=== PATIENT | female | born 1950 | race Asian ===

== ENCOUNTER 2025-03-12 08:00 | Outpatient (RCR) | payer MEDICARE, MEDICAID, SELFPAY ==
--- NOTE | 2025-03-04 12:01 | PTNOTE_ITS ---
PT OP Initial Eval Patient Information Outpatient Physical Therapy Treatment Date: 03/04/25 Visit Reasons: Bilateral knee pain Medical Diagnosis: Bilateral Knee Pain Treatment Dx #1: Bilateral Knee Pain Start of Care: 03/04/25 Date of Onset: 6 months ago Smoking Status Smoking Status: Never smoker Initial Assessment Subjective: Pt is a 74 y/o female reports of chronic bilateral knee pain (6/10) worsening in the past 6 months. 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 Pt has limitation with walking, standing, stairs, balance, and recreational activities. Due to knee pain Pt has been using walker for ~ 1 year. Objective: Left Knee AROM: 0 deg to 120 deg with pain Right Knee AROM: 0 deg to 125 deg with pain Knee MMTs: grossly 4-/5 Hip MMTs: grossly 3+/5 Assessment: Pt demonstrate bilateral knee pain with mobility deficits leading to difficulty with ADLs. Pt will attempt physical therapy if pain persist Pt will be refer back to provider for further consultation. Short Term and Senior Care Goals 1) Increase bilateral knee AROM WFL in 6 wks to be able to perform chores 2) Decrease knee pain to 2/10 in 6 wks to be able to stand more than 30 mins 3) Increase bilateral knee MMTs grossly to 4/5 in 6 wks to be able to perform stairs and steps 4) Increase hip MMTs grossly to 4-/5 in 6 wks to be able to walk more than 30 mins 5) Indep with HEP Treatment Plan 1) Manual Therapy 2) Therapeutic Activities 3) Therapeutic Exercises 4) Modalities (ice, heat) 5) Balance Training 6) Gait Training Frequency and Duration: 2 x wk for 6 wks Certification Dates: 03/04/25 to 06/04/25 Procedure Charges OP PT Eval Mod Complex 30 minutes: Yes
--- NOTE | 2025-03-10 11:19 | PT.ODAYNRPT ---
PT Outpatient Daily Note OP Daily Note Outpatient Physical Therapy Treatment Date: 03/10/25 Visit Reasons: Bilateral knee pain Subjective: Pt's knee still stiff and painful. No other concerns reported Objective: Please see flow chart for list of ther ex performed Assessment: tolerate exercises performed; frequent cues to keep track of reps to prevent LE fatigue. Plan: Continue with PT Length of Time (minutes) of Treatment: 30 Minutes Procedure Charges Therapeutic Exercise 30 minutes: Yes
--- NOTE | 2025-03-12 08:39 | PT.ODAYNRPT ---
PT Outpatient Daily Note OP Daily Note Outpatient Physical Therapy Treatment Date: 03/12/25 Visit Reasons: Bilateral knee pain Subjective: Pt's knees continues to hurt with prolonged standing or when she stands on one leg with self care or dressing activities. Objective: Please see flow chart for list of ther ex performed Assessment: patient educated why she has more pain in standing which relates to found OA in the knees. Pt gave verbal understanding. Slight increase in knee pain after side step exercise Plan: Continue with PT Length of Time (minutes) of Treatment: 30 Minutes Procedure Charges Therapeutic Exercise 30 minutes: Yes
== END 2025-03-13 23:59 | disposition home or self-care (01) ==
LOC: CPTX 08:00
PROVIDERS: PCP Physician Assistant; Referring Provider Physician Assistant; Visit Provider Physician Assistant
DX: M25.562 Pain in left knee (principal); M25.561 Pain in right knee; G89.29 Other chronic pain; R26.2 Difficulty in walking, not elsewhere classified; R26.89 Other abnormalities of gait and mobility; M17.0 Bilateral primary osteoarthritis of knee
CPT/HCPCS: 97110; 97162

== ENCOUNTER 2025-03-28 08:30 | Outpatient (RCR) | payer MEDICARE, MEDICAID, SELFPAY ==
--- NOTE | 2025-03-18 13:16 | PTNOTE_ITS ---
PT Outpatient Daily Note OP Daily Note Outpatient Physical Therapy Treatment Date: 03/18/25 Visit Reasons: Bilateral knee pain Subjective: Pt's knee is about the same. Pt continues to have pain around the knees. Objective: Please see flow chart for list of ther ex performed Assessment: added more closed chain exercises to day with good tolerance. Pt reports of diz ziness from supine to sit and require to sit at the EOB prior to ambulating to parallel bar to perform standing exercises Plan: Continue with PT Length of Time (minutes) of Treatment: 30 Minutes Procedure Charges Therapeutic Exercise 30 minutes: Yes
--- NOTE | 2025-03-26 09:34 | PT.ODAYNRPT ---
PT Outpatient Daily Note OP Daily Note Outpatient Physical Therapy Treatment Date: 03/26/25 Visit Reasons: Bilateral knee pain Subjective: Pt notice some crunchy in her knees when she bends it. Overall her knee is doing okay no new concerns. Objective: Please see flow chart for list of ther ex performed Assessment: added more closed chain exercises today with good tolerance. Frequent cues to correct form with fwd lunge exercises Plan: Continue with PT Length of Time (minutes) of Treatment: 30 Minutes Procedure Charges Therapeutic Exercise 30 minutes: Yes
--- NOTE | 2025-03-28 12:30 | PT.ODS1RPT ---
PT OP Progress/Discharge Note Date of Service: 03/28/25 Progress Note/DC Note Progress Note/Discharge Note: DC Note Patient Information Visit Reasons: Bilateral knee pain Medical Diagnosis: Bilateral Knee Pain Treatment Dx #1: Bilateral Knee Pain Service Discharge Date: 03/28/25 Status Subjective: Pt's knee pain is about the same since starting physical therapy. Pt continues to have the same pain (6/10) around the knee. Pt has limitation with walking, standing, chores, balance, self care, and performing recreational activities. Objective: Bilateral Knee AROM: 0 deg to 125 deg with pain Bilateral Knee MMTs: grossly 4/5 Hip MMTs: grossly 3+/5 Assessment: Pt demonstrate functional knee mobility and strength, however, no change in pain leading to limitation with ADLs. Pt will no longer benefit from physical therapy due to minimal progress towards goals. Pt was instructed on HEP last session and educated to continue exercises to maintain overall mobility. Pt performed all exercises safely; thank you for your referrals. Plan: D/C home with HEP and follow with MD Procedure Charges Therapeutic Exercise 30 minutes: Yes
== END 2025-04-13 23:59 | disposition home or self-care (01) ==
LOC: CPTX 08:30
PROVIDERS: PCP Physician Assistant; Referring Provider Physician Assistant; Visit Provider Physician Assistant
DX: M25.562 Pain in left knee (principal); M25.561 Pain in right knee; G89.29 Other chronic pain; R26.2 Difficulty in walking, not elsewhere classified; R26.89 Other abnormalities of gait and mobility; M17.0 Bilateral primary osteoarthritis of knee
CPT/HCPCS: 97110

== ENCOUNTER 2025-03-31 09:49 | Emergency (ER) | payer MEDICARE, MEDICAID, SELFPAY ==
[2025-03-31 10:08] VITALS: BP 157/88; PULSE 64; RESP 18; TEMP 36.7; O2SAT 96
--- NOTE | 2025-03-31 10:14 | XR_ITS ---
Examination: PA chest single view TECHNIQUE: Upright PA chest single view Date and time: March 31, 2025 1034 hours INDICATIONS: Patient fell today with injury to the chest, chest pain FINDINGS: Normal heart size. No pneumothorax. Prominent osteopenia IMPRESSION: No pneumothorax pulmonary contusion or hemothorax
--- NOTE | 2025-03-31 10:14 | XR_ITS ---
Examination: Right elbow 3 views Technique: Elbow AP, oblique, lateral 3 views Exam date and time: March 31, 2025 1014 hours INDICATIONS: Patient fell today with injury to the elbow, elbow pain. FINDINGS: Advanced elbow osteoarthritis No fracture or dislocation The lateral is not a true lateral IMPRESSION: Limited study No acute fracture.
--- NOTE | 2025-03-31 10:32 | EDNOTE_ITS ---
<Statement entered by Hina Benz MD - 03/31/25 15:49> As co-signing physician, I was present and available for consult prn. I concur with the plan and care as documented by the midlevel provider. ED Fall Injury RME/HPI General Chief Complaint: Fall Stated Complaint: FELL, HIT CHEST/L) ELBOW Time Seen by Provider: 03/31/25 10:09 Source: patient Arrival date/time: 03/31/25 09:49 74-year-old female with a history of hypertension presents to the emergency room with a chief complaint of left elbow pain and chest pain after a ground-level fall. Patient denies any head injury Mode of arrival: ambulatory Limitations: no limitations Related Data Home Medications ?Medication ?Instructions ?Recorded ?Confirmed benazepril 40 mg tablet (Lotensin) 40 mg PO QDAY #0 ta bs 07/25/17 12/12/22 metoprolol tartrate 50 mg tablet 50 mg PO BID #0 tabs 07/25/17 12/12/22 amlodipine 2.5 mg tablet (Norvasc) 2.5 mg PO DAILY 11/2912/12/22 lorazepam 1 mg tablet 1 mg PO Q4H PRN Anxiety 11/2912/12/22 calcium carbonate (Calcium 600) 600 mg PO QDAY 3 12/12/22 metformin 500 mg tablet 500 mg PO QDAY 12/12/2209/05 vitamin B complex-vitamin C-folic 1 tab PO QDAY 12/12/22 acid 0.8 mg tablet (Renal-Raven) Allergies Allergy/AdvReac Type Severity Reaction Status Date / Time No Known Allergies Allergy Verified 03/31/25 09:54 Review of Systems Review of Systems Systems Reviewed: All systems reviewed, normal except as documented Constitutional Constitutional: Reports system reviewed and no additional complaints, except as documented, Denies fatigue, Denies fever(s), Denies headache(s) and Denies weakness Eyes Eyes: Reports system reviewed and no additional complaints, except as documented , Denies blurry vision and Denies change in vision ENT Ears, Nose, Mouth, and Throat: Reports system reviewed and no additional complaints, except as documented, Denies otalgia, Denies headache(s), Denies nasal congestion, Denies throat swelling and Denies vertigo Cardiovascular Cardiovascular: Reports system reviewed and no additional complaints, except as documented, Denies chest pain, Denies dyspnea and Denies dyspnea on exertion Respiratory Respiratory: Reports system reviewed and no additional complaints, except as documented, Denies chest congestion, Denies cough, Denies dyspnea, Denies dyspnea on exertion and Denies wheezing Gastrointestinal Gastrointestinal: Reports system reviewed and no additional complaints, except as documented, Denies abdominal pain, Denies cramping, Denies nausea and Denies vomiting Genitourinary Genitourinary: Reports system reviewed and no additional complaints, except as documented Musculoskeletal Musculoskeletal: Reports system reviewed and no additional complaints, except as documented, Reports arthralgias and Denies back pain Integumentary/Breasts Skin/Breast: Reports system reviewed and no additional complaints, except as documented and Denies wounds Neurologic Neurologic: Reports system reviewed and no additional complaints, except as documented, Denies confusion, Denies headache(s), Denies lack of coordination, Denies vertigo and Denies weakness Psychiatric Psychiatric: Reports system reviewed and no additional complaints, except as documented, Denies anxiety, Denies confusion, Denies depression, Denies paranoia, Denies suicidal ideation and Denies tactile hallucinations Endocrine Endocrine: Reports system reviewed and no additional complaints, except as documented and Denies fatigue Hematologic/Lymphatic Hematologic/Lymphatic: Reports system reviewed and no additional complaints, except as documented and Denies lymphadenopathy Allergic/Immunologic Allergic/Immunologic: Reports system reviewed and no additional complaints, except as documented, Denies throat swelling, Denies urticaria and Denies wheezing Past Medical History Social History SMOKING STATUS: Never smoker SECOND HAND EXPOSURE: No SUBSTANCE USE: does not use ED Exam General Limitations: Present no limitations General appearance: Present alert and in no apparent distress Head Head exam: Present atraumatic Eye Eye exam: Present normal appearance, PERRL and EOMI ENT ENT exam: Present normal exam, normal oropharynx and mucous membranes moist Neck Neck exam: Present normal inspection, full ROM and trachea midline Chest Chest inspection: Present normal inspection and symmetric chest wall rise Respiratory Respiratory exam: Present normal lung sounds bilaterally; Absent respiratory distress, wheezes, stridor, accessory muscle use or prolonged expiratory phase Cardiovascular Cardiovascular exam: Present regular rate, normal rhythm and normal heart sounds; Absent bradycardia, tachycardia or irregular rhythm Abdominal Exam Abdominal exam: Present soft and normal bowel sounds Extremities Exam Extremities exam: Present normal inspection and full ROM Expanded Upper Extremity Exam Shoulder exam: Present normal inspection Arm exam: Present normal inspection Elbow exam: Present tenderness and swelling; Absent full ROM Forearm/Wrist exam: Present normal inspection Hand exam: Present normal inspection Back Exam Back exam: Present normal inspection and full ROM Neurological Exam Neurological exam: Present alert, oriented X3 and CN II-XII intact Psychiatric Psychiatric exam: Present normal affect and normal mood Skin Skin exam: Present warm, dry, intact and normal color Course Quality Measures none Orders Category Date Time Status XR chest 2V Stat Exams 03/31/25 10:14 Completed XR elbow comp LT min 3V Stat Exams 03/31/25 10:14 Completed Vital Signs Vital signs: Vital Signs Temperature 98.1 F 03/31/25 10:08 Pulse Rate 64 03/31/25 10:08 Respiratory Rate 18 03/31/25 10:08 Blood Pressure 157/88 H 03/31/25 10:08 Pulse Oximetry (%) 96 03/31/25 10:08 Oxygen Delivery Method Room Air 03/31/25 10:08 O2 saturation 96% within normal limits without Fall MDM Narrative MDM Narrative:: 74-year-old female with a history of hypertension presents to the emergency room with a chief complaint of left elbow pain and chest pain after a ground-level fall. Patient denies any head injury Patient is hemodynamically stable and in no apparent distress Physical examination shows tenderness and pain to the patient's left elbow as well as chest pain. Patient denies hitting her head and denies any neck pain headaches confusion or any other symptoms X-ray of the left elbow was completed and was negative for any acute findings. Chest x-ray was negative for any acute findings. Patient was discharged and educated to follow-up with primary care provider in the next 24 to 48 hours and return to the emergency room for any evidence of worsening signs or symptoms Patient data External records reviewed:: [facility] previous records Clinical information provided by:: patient Social determinants that could affect healthcare access:: none Patient has the following chronic illnesses:: No chronic illness How is presenting disease/condition affected by chronic disease/condition?: no chronic disease Evaluation data The following diagnostics were reviewed and interpreted by me:: lab results and radiology exam(s) Lab and/or radiology exams considered but not ordered:: Labs and radiology exams considered and ordered Interpretation Summary: Chest [id number]: Normal heart size. No pneumothorax. Prominent osteopenia IMPRESSION: No pneumothorax pulmonary contusion or hemothorax Medications / Prescriptions Medications or Prescriptions considered but not ordered:: Medication not given Medication administrations:: Medication not given Consultations Consultation(s) initiated? (list below): No Diagnosis Fall Differential Diagnosis: dislocation of shoulder region and other (Left elbow sprain) Most likely diagnosis given after review of the tests above:: Left elbow sprain Admission Indicated Admission indicated?: not indicated Admission Request Was there a request for admission?: No Disposition Plan Disposition Plan: Discharge Discharge Attestation Discharge Attestation: The patient and all family members were given an opportunity to ask questions and understood the discharge instructions. Discharge instructions specifically effects, indications for sooner follow up or return to the emergency department, and the expected course of current diagnosis. Patient condition: Stable Discharge Plan Plan Patient Disposition: HOME (Self Care) Discharge Disposition comment: Stable Prescriptions/Referrals Prescriptions/Med Rec: No Action calcium carbonate [Calcium 600] 600 mg calcium (1,500 mg) tablet 600 mg PO QDAY Renal-Raven 0.8 mg tablet 1 tab PO QDAY metformin 500 mg tablet 500 mg PO QDAY metoprolol tartrate 50 MG tablet 50 mg PO BID Qty: 0 benazepril [Lotensin] 40 MG tablet 40 mg PO QDAY Qty: 0 amlodipine [Norvasc] 2.5 mg Tablet 2.5 mg PO DAILY lorazepam 1 mg Tablet 1 mg PO Q4H PRN (Reason: Anxiety) Referrals: Teresa Saldana PA-C [Primary Care Provider] - In 1 week Problem List Clinical Impression: Sprain of elbow, left Patient/Caregiver Discharge Instructions Education Materials: ED Sprain, Elbow Additional Instructions: Please follow-up with your primary care provider in the next 24 to 48 hours Your chest x-ray and x-ray of your elbow were negative for any acute findings. For any evidence of worsening signs or symptoms return to the emergency room immediately Print Language: Stateless Stand Alone Forms: Anabella Award Info., Patient Portal Info Letter PA/RAHEL Supervising Physician CHRYSTAL/RAHEL Supervising Physician: Dr. BENZ
== END 2025-03-31 11:53 | disposition home or self-care (01) ==
PROVIDERS: Emergency Provider Emergency Medicine; PCP Physician Assistant
DX: S53.402A Unspecified sprain of left elbow, initial encounter (principal); W18.30XA Fall on same level, unspecified, initial encounter
CPT/HCPCS: 71046; 73080; 99283

== ENCOUNTER → 2025-05-07 | Outpatient (CLI) | payer MEDICARE, MEDICAID, SELFPAY ==
--- NOTE | 2025-05-07 09:33 | XR_ITS ---
Examination: PA lateral chest 2 views TECHNIQUE: Upright PA lateral chest 2 views Date and time: May 07, 2025 0944 hours, comparison March 31, 2025 INDICATIONS: Coughing beginning one week ago. FINDINGS: Normal heart size Lungs are clear. Prominent osteopenia IMPRESSION: No active disease.
== END | disposition home or self-care (01) ==
LOC: CDIM 09:03
PROVIDERS: PCP Physician Assistant; Referring Provider Physician Assistant; Visit Provider Physician Assistant
DX: R05.9 Cough, unspecified (principal)
CPT/HCPCS: 71046

== ENCOUNTER → 2025-05-15 | Outpatient (CLI) | payer MEDICARE, MEDICAID, SELFPAY ==
--- NOTE | 2025-05-15 09:45 | XR_ITS ---
Examination: Esophagram standard 27 spot fluoroscopic films of the esophagus Upright PA chest single view Upright soft tissue lateral neck single view Fluoroscopy Date and time: May 15, 2025 0957 hours INDICATIONS: Dysphonia, dysphagia months FINDINGS: Upright PA chest normal heart size, lungs are clear Soft tissue lateral neck normal epiglottis no prevertebral soft tissue prominence Patient swallowed thin barium with 27 spot fluoroscopic films of the esophagus Primary peristaltic esophageal waves Scattered secondary and tertiary esophageal contractions Moderate intermittent gastroesophageal reflux Mild edema at the gastroesophageal junction with 20% narrowing Fluoroscopy 30 seconds IMPRESSION: Esophageal dysmotility Moderate intermittent gastroesophageal reflux Edema at the gastroesophageal junction 20% narrowing, likely related to reflux esophagitis, clinical correlation advised
== END | disposition home or self-care (01) ==
PROVIDERS: PCP Physician Assistant; Referring Provider Physician Assistant; Visit Provider Physician Assistant
DX: K21.9 Gastro-esophageal reflux disease without esophagitis (principal); R60.0 Localized edema
CPT/HCPCS: 74220; A4649

== ENCOUNTER 2025-08-02 11:22 | Emergency (ER) | payer MEDICARE, MEDICAID, SELFPAY ==
[2025-08-02 11:45] VITALS: BP 145/75; PULSE 65; RESP 19; TEMP 36.7; O2SAT 97; BMI 25.9
--- NOTE | 2025-08-02 11:51 | PD.EDANKLE ---
Lower Extremity Injury RME/HPI General Chief Complaint: Ankle/Foot Injury Stated Complaint: Right foot pain X 3 days Time Seen by Provider: 08/02/25 11:39 Arrival date/time: 08/02/25 11:22 75-year-old female patient came in for evaluation regarding right ankle pain. Onset of symptoms for the last 3 days's pain to the right ankle radiated to the midfoot severity moderate, worse with ambulation. Patient denies any trauma or fall. Patient told me that she is eating a lot of fish sauce lately. She had a significant history of hypertension and gout in the past. She also had a history of diabetes mellitus. No medication was taken prior to ER visit. Related Data Home Medications ?Medication ?Instructions ?Recorded ?Confirmed benazepril 40 mg tablet (Lotensin) 40 mg PO QDAY #0 tabs 07/25/17 12/12/22 metoprolol tartrate 50 mg tablet 50 mg PO BID #0 tabs 07/25/17 12/12/22 amlodipine 2.5 mg tablet (Norvasc) 2.5 mg PO DAILY 03/17/18 12/12/22 lorazepam 1 mg tablet 1 mg PO Q4H PRN Anxiety 03/17/18 12/12/22 calcium carbonate (Calcium 600) 600 mg PO QDAY 12/12/22 12/12/22 metformin 500 mg tablet 500 mg PO QDAY 12/12/22 12/12/22 vitamin B complex-vitamin C-folic 1 tab PO QDAY 12/12/22 12/12/22 acid 0.8 mg tablet (Renal-Arven) Previous Rx's ?Medication ?Instructions ?Recorded colchicine 0.6 mg tablet 0.6 mg PO BID #10 tabs 08/02/25 famotidine 20 mg tablet (Pepcid) 20 mg PO BID #14 tabs 08/02/25 indomethacin 75 mg 75 mg PO BID #14 caps 08/02/25 capsule,extended release Allergies Allergy/AdvReac Type Severity Reaction Status Date / Time No Known Allergies Allergy Verified 08/02/25 11:26 Review of Systems Review of Systems Narrative Review of Systems: Review of system reviewed and within normal limits except mentioned in HPI ED Exam Narrative Physical exam: VITAL SIGNS: Reviewed. GENERAL APPEARANCE: Alert and interactive, follows commands, no acute distress, HEAD AND FACE: Non-traumatic. ENT: PERRL, pink conjunctivitis, eyelid no trauma, Mucous membrane moist. NECK: Supple, nontender, no nuchal rigidity. CHEST: No tenderness, no crepitus, no paradoxical movement, no retractions. LUNGS: Clear, well ventilated, symmetric, no rales, no wheezing, no ronchi, no stridor, good breath sounds bilaterally. HEART: Regular rate, regular rhythm, no murmur, no gallops. ABDOMEN: Soft, positive bowel sounds, nondistended, no guarding, nontender, no rebound, no masses, RECTAL: Deferred. GENITAL: Deferred. NEUROLOGICAL: Gross motor function intact sensory function intact, Appropriate for age. MUSCULOSKELETAL: low back nontender, full range of motion. EXTREMITIES: + Right ankle swelling, right mid foot swelling with tenderness, no redness noted, full range of motion. SKIN: Color pink, dry, no rash, no lacerations, no abrasions, no contusions. LYMPHATICS: Deferred. Course Quality Measures none Orders Category Date Time Status XR ankle RT 2V Stat Exams 08/02/25 11:59 Completed CBC [CBC] Stat Lab 08/02/25 12:10 Completed CMP [Comprehensive Metabolic Panel] Stat Lab 08/02/25 12:10 Completed Uric Acid Stat Lab 08/02/25 12:10 Completed Colchicine Med 08/02/25 11:59 Discontinued 1.2 mg PO X1 ONE Famotidine [Pepcid] Med 08/02/25 11:59 Discontinued 40 mg PO X1 ONE Ketorolac Inj [Toradol Inj] Med 08/02/25 11:59 Discontinued 15 mg IM X1 ONE dexAMETHasone INJ [Decadron Inj] Med 08/02/25 11:59 Discontinued 10 mg PO X1 ONE Vital Signs Vital signs: Vital Signs Temperature 98.1 F 08/02/25 11:45 Pulse Rate 65 08/02/25 11:45 Respiratory Rate 19 08/02/25 11:45 Blood Pressure 145/75 H 08/02/25 11:45 Pulse Oximetry (%) 97 08/02/25 11:45 Oxygen Delivery Method Room Air 08/02/25 11:45 Extremity Injury, Lower MDM Narrative MDM Narrative:: 75-year-old female patient came in for evaluation regarding right ankle pain. Onset of symptoms for the last 3 days's pain to the right ankle radiated to the midfoot severity moderate, worse with ambulation. Patient denies any trauma or fall. Patient told me that she is eating a lot of fish sauce lately. She had a significant history of hypertension and gout in the past. She also had a history of diabetes mellitus. No medication was taken prior to ER visit. Patient's laboratory workup including uric acid, normal. X-ray of the ankle showed arthritis pattern otherwise unremarkable. Patient verbalized significant improvement of symptoms after patient received colchicine, Decadron Pepcid and Toradol. Patient stable for discharge home patient is ambulatory. Patient data External records reviewed:: None Clinical information provided by:: patient Social determinants that could affect healthcare access:: none Patient has the following chronic illnesses:: Hypertension How is presenting disease/condition affected by chronic disease/condition?: exacerbated by Evaluation data The following diagnostics were reviewed and interpreted by me:: lab results and radiology exam(s) Lab and/or radiology exams considered but not ordered:: None Interpretation Summary: See above Medications / Prescriptions Medications or Prescriptions considered but not ordered:: None see above Medication administrations:: Medication Administration History Discontinued Medications Colchicine (Colchicine 0.6 Mg Tablet) 1.2 mg PO X1 ONE Stop: 08/02/25 12:00 Last Admin: 08/02/25 12:54 Dose: 1.2 mg Documented By: YEYO Dexamethasone Sodium Phosphate (Dexamethasone Sod Phos Inj 10 Mg/Ml Vial) 10 mg PO X1 ONE Stop: 08/02/25 12:00 Last Admin: 08/02/25 12:55 Dose: 10 mg Documented By: YEYO Famotidine (Famotidine 20 Mg Tablet) 40 mg PO X1 ONE Stop: 08/02/25 12:00 Last Admin: 08/02/25 12:54 Dose: 40 mg Documented By: YEYO Ketorolac Tromethamine (Ketorolac Inj 30 Mg/Ml Vial) 15 mg IM X1 ONE Stop: 08/02/25 12:00 Last Admin: 08/02/25 12:56 Dose: 15 mg Documented By: YEYO See above Consultations Consultation(s) initiated? (list below): No Diagnosis Extremity Injury, Lower Differential Diagnosis: ankle sprain and strain and ankle fracture Most likely diagnosis given after review of the tests above:: Arthritis ankle Admission Indicated Admission indicated?: not indicated Admission Request Was there a request for admission?: No Disposition Plan Disposition Plan: Discharge Discharge Attestation Discharge Attestation: The patient and all family members were given an opportunity to ask questions and understood the discharge instructions. Discharge instructions specifically effects, indications for sooner follow up or return to the emergency department, and the expected course of current diagnosis. Patient condition: Stable Discharge Plan Plan Patient Disposition: HOME (Self Care) Discharge Disposition comment: Stable Prescriptions/Referrals Prescriptions/Med Rec: New indomethacin 75 mg capsule, extended release 75 mg PO BID Qty: 14 0RF famotidine [Pepcid] 20 mg tablet 20 mg PO BID Qty: 14 0RF colchicine 0.6 mg tablet 0.6 mg PO BID Qty: 10 0RF No Action calcium carbonate [Calcium 600] 600 mg calcium (1,500 mg) tablet 600 mg PO QDAY Renal-Raven 0.8 mg tablet 1 tab PO QDAY metformin 500 mg tablet 500 mg PO QDAY metoprolol tartrate 50 MG tablet 50 mg PO BID Qty: 0 benazepril [Lotensin] 40 MG tablet 40 mg PO QDAY Qty: 0 amlodipine [Norvasc] 2.5 mg Tablet 2.5 mg PO DAILY lorazepam 1 mg Tablet 1 mg PO Q4H PRN (Reason: Anxiety) Referrals: Teresa Saldana PA-C [Primary Care Provider, Family Practice] - In 1 week Problem List Clinical Impression: Arthritis of ankle Patient/Caregiver Discharge Instructions Discharge Activity: activity as tolerated Education Materials: What Is Arthritis? Additional Instructions: Thank you for the opportunity for serving you today. You are stable for discharged . You are advised to: Follow-up with your PCP in 1 to 2 days Return to ED for worsening of symptoms Increase oral fluids Take medication as prescribed Print Language: Lithuanian Stand Alone Forms: Anabella Award Info., Patient Portal Info Letter CHRYSTAL/RAHEL Supervising Physician CHRYSTAL/RAHEL Supervising Physician: MD Constanza
--- NOTE | 2025-08-02 11:59 | XR_ITS ---
EXAMINATION: Ankle, right 2 views. Examination: AP lateral right ankle 2 views Date and time: August 02, 2025, 12:10 p.m. INDICATIONS: Ankle pain 3 days. FINDINGS: Moderate osteopenia Bimalleolar soft tissue swelling No fracture or dislocation 10 mm plantar bony calcaneal spur. 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
[2025-08-02 12:53] LABS: Basophils # (Auto) 0.0 Thou/mm3 (0.0-0.2); Basophils % (Auto) 0 % (0-2.5); Eosinophils # (Auto) 0.1 Thou/mm3 (0.0-0.5); Eosinophils % (Auto) 1 % (0-10); Hematocrit 35.8 % (36.0-46.0); Hemoglobin 11.9 g/dL (12.0-16.0); Immature Granulocytes Auto 0.04 Thou/mm3 (0.00-0.00); Lymphocytes # (Auto) 2.1 Thou/mm3 (1.0-4.8); Lymphocytes % (Auto) 19 % (10-50); Mean Corpuscular HGB Conc 33.2 g/dl (31.0-37.0); Mean Corpuscular Hemoglobin 31.7 pg (25.0-35.0); Mean Corpuscular Volume 96 fL (80-100); Monocytes # (Auto) 1.3 Thou/mm3 (0.0-0.8); Monocytes % (Auto) 12 % (0-12); Neutrophils # (Auto) 7.2 Thou/mm3 (1.8-7.7); Neutrophils % (Auto) 67 % (37-80); Nucleated Red Blood Cell # 0.00 Thou/mm3 (0.00-0.00); Nucleated Red Blood Cell % 0 /100 WBC (0); Platelet Count 243 Thou/mm3 (140-440); RDW Standard Deviation 46.8 fL (36.4-46.3); Red Blood Count 3.75 Miln/mm3 (4.00-5.20); White Blood Count 10.7 Thou/mm3 (3.6-11.0)
[2025-08-02] MEDS: COLCHICINE 0.6 MG TABLET 1.2 MG PO (12:54)
[2025-08-02] MEDS: FAMOTIDINE 20 MG TABLET 40 MG PO (12:54)
[2025-08-02] MEDS: KETOROLAC INJ 30 MG/ML VIAL 15 MG IM (12:56)
[2025-08-02 13:23] LABS: Alanine Aminotransferase 21 U/L (10-49); Albumin, Serum 4.9 gm/dL (3.4-4.8); Albumin/Globulin Ratio 1.7 (1.2-2.2); Alkaline Phosphatase 53 U/L (46-116); Anion Gap 10 (7-16); Aspartate Amino Transferase 23 U/L (0-34); BUN/Creatinine Ratio 9 Ratio (12-20); Bilirubin,Total 0.6 mg/dL (0.3-1.2); Blood Urea Nitrogen 8 mg/dL (9-23); Calcium 9.1 mg/dL (8.3-10.6); Calcium (Corrected) 9.1 mg/dL (8.5-10.1); Carbon Dioxide 26.9 mMol/L (20.0-31.0); Chloride 106 mMol/L (98-107); Creatinine (Component) 0.9 mg/dL (0.6-1.3); Estimated Creatinine Clearance 38.3 mL/min (>60); Globulin 2.9 gm/dL (2.3-3.5); Glucose 108 mg/dL (74-106); Osmolality,Calculated 284 (275-295); Potassium 3.6 mMol/L (3.4-5.1); Sodium 143 mMol/L (136-145); Total Protein 7.8 gm/dL (5.7-8.2); Uric Acid 6.4 mg/dL (3.1-7.8); eGFR > 60 See Note
== END 2025-08-02 16:26 | disposition home or self-care (01) ==
PROVIDERS: Nurse Practitioner Family; Emergency Provider Emergency Medicine; PCP Physician Assistant
DX: M19.071 Primary osteoarthritis, right ankle and foot (principal)
CPT/HCPCS: 36415; 73600; 80053; 84550; 85025; 96372; 99283; J1100; J1885; A9270